=== PATIENT | female | born 1985 | race Caucasian/White ===

== ENCOUNTER 2017-02-12 14:32 | Emergency (ER) | payer BC ==
[2017-02-12 17:24] LABS: Hematocrit 38 % (35-47); Hemoglobin 13.2 g/dl (12.0-16.0); Mean Corpuscular HGB Conc 34 g/dl (31-36); Mean Corpuscular Hemoglobin 30 pg (27-31); Mean Corpuscular Volume 89 fL (80-97); Mean Platelet Volume 7 um3 (7.4-10.4); Red Blood Count 4.34 10^6/ul (4.0-5.4); Red Cell Distribution Width 13 % (10.5-15); White Blood Count 7.9 10^3/ul (3.5-10.8)
[2017-02-12 17:26] LABS: Urine Bilirubin Negative (Negative); Urine Glucose Negative (Negative); Urine Nitrite Negative (Negative)
--- NOTE | 2017-02-12 17:30 | RAD ---
INDICATION: Limited for viability COMPARISON: None TECHNIQUE: A limited evaluation performed as requested. Anatomic survey was not requested or performed due to the age of the gestation. FINDINGS: There is a single intrauterine gestation in variable presentation with heart rate of 147 beats for minute. The placenta is anterior in location. The cervix is closed measuring 4.8 cm The SMA gestational age based on biparietal diameter, head circumference, abdominal circumference, and femur length corresponds to 16 weeks 0 days, 15 weeks 4 days, 15 weeks 2 days, and 15 weeks 3 days resulting a composite value of 15 weeks 4 days. Both ovaries are visualized and appear normal. IMPRESSION: EARLY INTRAUTERINE GESTATION AT 15 WEEKS 4 DAYS WITH CONFIRMATION OF CARDIAC ACTIVITY. AN ANATOMIC SURVEY CAN BE PERFORMED AT 18-20 WEEKS
[2017-02-12 17:40] LABS: C Reactive Protein 1.3 mg/L (< 5.00); Calcium 8.8 mg/dL (8.6-10.3); EGFR African American 198.8 (>60); EGFR Non-African American 154.6 (>60); Magnesium 2.2 mg/dL (1.9-2.7); Potassium 3.9 mmol/L (3.5-5.0); Total Bilirubin 0.4 mg/dL (0.2-1.0)
[2017-02-12 18:19] LABS: TSH (Thyroid Stimulating Horm) 1.4 mcIU/mL (0.34-5.60)
--- NOTE | 2017-02-12 19:34 | ED ---
Giulia Cantu Alfonso, scribed for Alberto Robbins MD on 02/12/17 at 1631 . Palpitations / Dysrhythmia - HPI Summary HPI Summary: This patient is a 31 year old F presenting to [facility] with a chief complaint of racing palpitations from 1230 to 1600 today. She states it felt like my heart was going to beat out of my chest. The patient rates the pain 3/10 in severity. Symptoms aggravated by nothing. Symptoms alleviated by spontaneous resolution. Patient reports migraine (last three days and not present), high blood pressure, diaphoresis, dizziness, and bilateral flank pain (intermittent and sharp).Patient denies near syncope, vaginal bleeding, urinary symptoms, calf swelling, and bowel symptoms. A0. She is 15 weeks with a due date of August [address] Michael is her OBGYN. - History of Current Complaint Chief Complaint: EDDysrhythmPalp Time Seen by Provider: 02/12/17 15:47 Hx Obtained From: Patient Onset/Duration: Sudden Onset, Lasting Hours - [id number], Resolved Timing: Constant Severity Currently: Mild - 3/10 pain Character: Fast, Pounding Aggravating: Nothing Alleviating: Other - spontaneous resolution Associated Signs & Symptoms: Dizzy, Diaphoresis - Allergy/Home Medications Allergies/Adverse Reactions: Allergies Allergy/AdvReac Type Severity Reaction Status Date / Time Amoxicillin Allergy Severe Anaphylatic Verified 08/31/15 13:23 Shock Eggs or Egg-derived Products Allergy Severe THROAT Verified 08/31/15 13:23 SWELLS Shellfish Allergy Allergy Severe Anaphylatic Verified 08/31/15 13:23 Shock Cefuroxime [From Ceftin] Allergy Intermediate LIPS SWELL Verified 08/31/15 13:23 Environmental/Seasonal Allergy sneezing, Uncoded 08/31/15 13:23 Hayfever runny nose, watery eyes PMH/Surg Hx/FS Hx/Imm Hx Endocrine/Hematology History: Denies: Hx Diabetes, Hx Thyroid Disease Cardiovascular History: Reports: Hx Coronary Artery Disease - CHOLESTEROL CONTROL WITH MEDS Denies: Hx Hypertension Respiratory History: Reports: Hx Asthma Denies: Hx Chronic Obstructive Pulmonary Disease (COPD) GI History: Denies: Hx Ulcer Sensory History: Reports: Hx Contacts or Glasses - GLASSES Denies: Hx Hearing Aid Opthamlomology History: Reports: Hx Contacts or Glasses - GLASSES Denies: Hx Legally Blind EENT History: Denies: Hx Deafness - Surgical History Surgery Procedure, Year, and Place: Gastric bypass- 07/2013 Infectious Disease History: No Infectious Disease History: Denies: Hx Clostridium Difficile, Hx Hepatitis, Hx Human Immunodeficiency Virus (HIV), Hx of Known/Suspected MRSA, Hx Shingles, Hx Tuberculosis, Traveled Outside the [place] in Last 30 Days - Family History Known Family History: Positive: Hypertension, Diabetes - grandparents, Other - Cancer mother side. Negative: Cardiac Disease - Social History Alcohol Use: None Substance Use Type: Reports: None Smoking Status (MU): Never Smoked Tobacco Review of Systems Positive: Skin Diaphoresis Positive: Palpitations, Other - high blood pressure Positive: Other - bilateral flank pain (intermittent and sharp); negative bowel symptoms Positive: no symptoms reported, other - Negative vaginal bleeding Negative: Edema Neurological: Other - Dizziness Positive: Headache - Migraine. Negative: Syncope - near All Other Systems Reviewed And Are Negative: Yes Physical Exam - Summary Physical Exam Summary: General: well-appearing, no pain distress Skin: warm, color reflects adequate perfusion, dry Head: normal Eyes: EOMI, FADY ENT: normal Neck: supple, nontender Respiratory: CTA, breath sounds present Cardiovascular: RRR Abdomen: soft, nontender Bowel: present Musculoskeletal: normal, strength/ROM intact Neurological: normal, sensory/motor intact, A&O x3 Psychological: affect/mood appropriate Triage Information Reviewed: Yes Vital Signs On Initial Exam: Initial Vitals Temp Pulse Resp BP Pulse Ox 99.9 F 102 20 147/96 100 02/12/17 14:35 02/12/17 14:35 02/12/17 14:35 02/12/17 14:35 02/12/17 14:35 Vital Signs Reviewed: Yes - Madisyn Coma Scale Coma Scale Total: 15 Diagnostics - Vital Signs Vital Signs Temp Pulse Resp BP Pulse Ox 02/12/17 16:08 98.5 F 02/12/17 16:04 9 120/84 02/12/17 14:35 99.9 F 102 20 147/96 100 - Laboratory Lab Results: Lab Results 02/12/17 02/12/17 02/12/17 Range/Units 17:05 17:12 17:12 WBC (3.5-10.8) 10^3/ul RBC (4.0-5.4) 10^6/ul Hgb (12.0-16.0) g/dl Hct (35-47) % MCV (80-97) fL MCH (27-31) pg MCHC (31-36) g/dl RDW (10.5-15) % Plt Count (150-450) 10^3/ul MPV (7.4-10.4) um3 Neut % (Auto) (38-83) % Lymph % (Auto) (25-47) % [place] % (Auto) (1-9) % Eos % (Auto) (0-6) % Baso % (Auto) (0-2) % Absolute Neuts (auto) (1.5-7.7) 10^3/ul Absolute Lymphs (auto) (1.0-4.8) 10^3/ul Absolute Monos (auto) (0-0.8) 10^3/ul Absolute Eos (auto) (0-0.6) 10^3/ul Absolute Basos (auto) (0-0.2) 10^3/ul Absolute Nucleated RBC 10^3/ul Nucleated RBC % INR (Anticoag Therapy) 0.99 (0.89-1.11) APTT 29.1 (26.0-36.3) seconds D-Dimer, Quantitative < 200 (Less Than 230) ng/mL Sodium 135 (133-145) mmol/L Potassium 3.9 (3.5-5.0) mmol/L Chloride 105 (101-111) mmol/L Carbon Dioxide 22 (22-32) mmol/L Anion Gap 8 (2-11) mmol/L BUN 8 (6-24) mg/dL Creatinine 0.47 L (0.51-0.95) mg/dL Est GFR ( Amer) 198.8 (>60) Est GFR (Non-Af Amer) 154.6 (>60) BUN/Creatinine Ratio 17.0 (8-20) Glucose 79 (70-100) mg/dL Lactic Acid (0.5-2.0) mmol/L Calcium 8.8 (8.6-10.3) mg/dL Magnesium 2.2 (1.9-2.7) mg/dL Total Bilirubin 0.40 (0.2-1.0) mg/dL AST 11 L (13-39) U/L ALT 8 (7-52) U/L Alkaline Phosphatase 48 (34-104) U/L Total Creatine Kinase 28 (10-223) U/L CK-MB (CK-2) 0.6 (0.6-6.3) ng/mL Troponin I 0.00 (<0.04) ng/mL C-Reactive Protein 1.30 (< 5.00) mg/L Total Protein 7.0 (6.4-8.9) g/dL Albumin 4.0 (3.2-5.2) g/dL Globulin 3.0 (2-4) g/dL Albumin/Globulin Ratio 1.3 (1-3) Lipase 22 (11.0-82.0) U/L TSH 1.40 (0.34-5.60) mcIU/mL Urine Color Yellow Urine Appearance Clear Urine pH 6.0 (5-9) Ur Specific [place] 1.023 (1.010-1.030) Urine Protein Negative (Negative) Urine Ketones 1+ H (Negative) Urine Blood Negative (Negative) Urine Nitrate Negative (Negative) Urine Bilirubin Negative (Negative) Urine Urobilinogen Negative (Negative) Ur Leukocyte Esterase Negative (Negative) Urine Glucose Negative (Negative) 02/12/17 02/12/17 Range/Units 17:12 17:12 WBC 7.9 (3.5-10.8) 10^3/ul RBC 4.34 (4.0-5.4) 10^6/ul Hgb 13.2 (12.0-16.0) g/dl Hct 38 (35-47) % MCV 89 (80-97) fL MCH 30 (27-31) pg MCHC 34 (31-36) g/dl RDW 13 (10.5-15) % Plt Count 316 (150-450) 10^3/ul MPV 7 L (7.4-10.4) um3 Neut % (Auto) 73.2 (38-83) % Lymph % (Auto) 18.9 L (25-47) % [place] % (Auto) 5.8 (1-9) % Eos % (Auto) 1.1 (0-6) % Baso % (Auto) 1.0 (0-2) % Absolute Neuts (auto) 5.8 (1.5-7.7) 10^3/ul Absolute Lymphs (auto) 1.5 (1.0-4.8) 10^3/ul Absolute Monos (auto) 0.5 (0-0.8) 10^3/ul Absolute Eos (auto) 0.1 (0-0.6) 10^3/ul Absolute Basos (auto) 0.1 (0-0.2) 10^3/ul Absolute Nucleated RBC 0 10^3/ul Nucleated RBC % 0.1 INR (Anticoag Therapy) (0.89-1.11) APTT (26.0-36.3) seconds D-Dimer, Quantitative (Less Than 230) ng/mL Sodium (133-145) mmol/L Potassium (3.5-5.0) mmol/L Chloride (101-111) mmol/L Carbon Dioxide (22-32) mmol/L Anion Gap (2-11) mmol/L BUN (6-24) mg/dL Creatinine (0.51-0.95) mg/dL Est GFR ( Amer) (>60) Est GFR (Non-Af Amer) (>60) BUN/Creatinine Ratio (8-20) Glucose (70-100) mg/dL Lactic Acid 0.6 (0.5-2.0) mmol/L Calcium (8.6-10.3) mg/dL Magnesium (1.9-2.7) mg/dL Total Bilirubin (0.2-1.0) mg/dL AST (13-39) U/L ALT (7-52) U/L Alkaline Phosphatase (34-104) U/L Total Creatine Kinase (10-223) U/L CK-MB (CK-2) (0.6-6.3) ng/mL Troponin I (<0.04) ng/mL C-Reactive Protein (< 5.00) mg/L Total Protein (6.4-8.9) g/dL Albumin (3.2-5.2) g/dL Globulin (2-4) g/dL Albumin/Globulin Ratio (1-3) Lipase (11.0-82.0) U/L TSH (0.34-5.60) mcIU/mL Urine Color Urine Appearance Urine pH (5-9) Ur Specific [place] (1.010-1.030) Urine Protein (Negative) Urine Ketones (Negative) Urine Blood (Negative) Urine Nitrate (Negative) Urine Bilirubin (Negative) Urine Urobilinogen (Negative) Ur Leukocyte Esterase (Negative) Urine Glucose (Negative) Result Diagrams: 02/12/17 17:12 02/12/17 17:12 Lab Statement: Any lab studies that have been ordered have been reviewed, and results considered in the medical decision making process. - EKG 1638 Cardiac Rate: NL - BPM 78 EKG Rhythm: Sinus Rhythm EKG Interpretation: LVH by voltage. Flipped T-waves in III. No ectopy. - Additional Comments Diagnostic Additional Comments: US reveals, per radiologist, EARLY INTRAUTERINE GESTATION AT 15 WEEKS 4 DAYS WITH CONFIRMATION OF CARDIAC ACTIVITY. AN ANATOMIC SURVEY CAN BE PERFORMED AT 18-20 WEEKS. ED physician has reviewed this radiology report and agrees. Course/Dx - Course Course Of Treatment: INITIALLY DISCUSSED WITH SANGEETA ANDERSON. PATIENT ASYMPTOMATIC IN ED. AT DISCHARGE, NOT TACHYCARDIC OR HYPERTENSIVE. DISCUSSED RESULTS WITH PATIENT. SHE WILL F/U WITH HER PMD FOR THE EPISODES OF HYPERTENSION AND TACHYCARDIA. F/U WITH OB FOR ABD PAIN. RETURN IF WORSE. - Diagnoses Provider Diagnoses: Tachycardia, Hypertension, Abdominal pain during Discharge - Discharge Plan Condition: Stable Disposition: HOME Patient Education Materials: Hypertension (ED), Tachycardia (ED), Abdominal Pain in (ED) Referrals: Trini Sheets MD [Primary Care Provider] - Additional Instructions: FOLLOW UP WITH YOUR PRIMARY CARE DOCTOR FOR YOUR EPISODES OF HIGH BLOOD PRESSURE AND FAST HEART RATE. FOLLOW UP WITH SANGEETA ANDERSON, FOR YOUR ABDOMINAL PAIN IN . RETURN TO THE EMERGENCY DEPARTMENT FOR ANY WORSENING OF YOUR CONDITION; PAIN, HYPERTENSION, FAST HEART RATE, SHORTNESS OF BREATH OR QUESTIONS OR CONCERNS. The documentation as recorded by the Giulia gudino Alfonso accurately reflects the service I personally performed and the decisions made by me, Alberto Robbins MD.
[2017-02-12 19:35] VITALS: BP 116/91
== END 2017-02-12 19:44 | disposition home or self-care (01) ==
LOC: ED 14:32
DX: O26.892 Other specified pregnancy related conditions, second trimester (principal); Z3A.15 15 weeks gestation of pregnancy; R00.0 Tachycardia, unspecified; I10 Essential (primary) hypertension; R42 Dizziness and giddiness; R00.2 Palpitations; R10.84 Generalized abdominal pain
CPT/HCPCS: 36415; 76815; 80053; 81003; 82550; 82553; 83605; 83690; 83735; 84443; 84484; 85025; 85379; 85610; 85730; 86140; 93005; 99283

== ENCOUNTER 2017-06-13 10:40 | Inpatient (IN) | payer BC ==
[2017-06-13 11:25] LABS: ABS Basophils 0 10^3/ul (0-0.2); ABS Eosinophils 0.1 10^3/ul (0-0.6); ABS Lymphocytes 1.2 10^3/ul (1.0-4.8); ABS Monocytes 0.6 10^3/ul (0-0.8); ABS Neutrophils 5.5 10^3/ul (1.5-7.7); ABS Nucleated RBC 0 10^3/ul; Eosinophil % 1.3 % (0-6); Hematocrit 30 % (35-47); Lymphocyte % 16.2 % (25-47); Mean Corpuscular HGB Conc 34 g/dl (31-36); Mean Corpuscular Hemoglobin 28 pg (27-31); Mean Corpuscular Volume 84 fL (80-97); Mean Platelet Volume 9 um3 (7.4-10.4); Nucleated Red Blood Cells % 0; Platelet Count 182 10^3/ul (150-450); Red Blood Count 3.55 10^6/ul (4.0-5.4); Red Cell Distribution Width 13 % (10.5-15); White Blood Count 7.4 10^3/ul (3.5-10.8)
[2017-06-13 11:40] LABS: EGFR Non-African American 130.8 (>60)
[2017-06-13 12:32] LABS: Urine Appearance Cloudy; Urine Blood 1+ (Negative); Urine Color Yellow; Urine Ketones Negative (Negative); Urine Protein 3+(>=500 mg/dL) (Negative); Urine Urobilinogen Negative (Negative)
[2017-06-13] MEDS ORDERED: Labetalol TAB* 200 MG ONE (13:21)
--- NOTE | 2017-06-13 18:08 | RAD ---
INDICATION: Assess well-being COMPARISON: sonogram February 12, 2017 TECHNIQUE: Limited evaluation performed with biophysical profile FINDINGS: There is a single intrauterine gestation cephalic presentation with an anterior placenta which appears clear of the os. There is cardiac activity of 142 beats for minute. The cervix closed measuring 3.60 m. The amniotic fluid index is normal measuring 14.3. The biparietal diameter, head circumference, abdominal circumference, and femur length corresponds to 31 weeks 6 days, 33 weeks 2 days, 31 weeks 1 day, and 32 weeks 6 days resulting a composite ultrasound gestational age of 32 weeks 2 days. The radiology biophysical profile scores an 8 with 2 points each for breathing movements, movement, tone, and amniotic fluid volume. IMPRESSION: INTRAUTERINE GESTATION AT 32 WEEKS 2 DAYS. THE RADIOLOGY BIOPHYSICAL PROFILE SCORES AN 8
[2017-06-13] MEDS ORDERED: Acetaminophen TAB* 325 MG PO PRN (19:20)
[2017-06-13] MEDS ORDERED: Labetalol TAB* 200 MG PO SCH (21:00)
[2017-06-13] MEDS ORDERED: Labetalol IV* 5 MG/ML 20 ML VIAL ONE (23:18)
[2017-06-13] MEDS ORDERED: Betamethasone INJ* 6 MG/ML 5 ML VIAL (30 MG) IM ONE (23:25)
[2017-06-13] MEDS ORDERED: Labetalol IV* 5 MG/ML 20 ML VIAL IV PUSH ONE (23:26)
[2017-06-13] MEDS ORDERED: Magnesium Sulf 4 GM/100 ML IV* 4,000 MG/100 ML BAG IVPB ONE (23:27)
[2017-06-13] MEDS ORDERED: Magnesium Sulfate OB PREMIX* 40 GM/1,000 ML BAG IVPB SCH (23:45)
--- NOTE | 2017-06-13 23:52 | HP ---
General Information - General Information Maternal Age: 32 Grav: 1 Para: 0 SAB: 0 IEA: 0 Estimated Due Date: 08/06/17 Determined By: Early Ultrasound Gestational Age in Weeks and Days: 32 Weeks and 2 Days Maternal Blood Type and Rh: O Positive - Results this Serology/RPR Result: Non-Reactive Rubella Result: Immune HBsAg Result: Negative HIV Result: Negative Past Medical History Pertinent Past Medical History: See Records Past Medical History Comment: type 2 diabetes and hypertension - Antepartal Records Antepartal Records: Reviewed, Uncomplicated Exam Allergies/Adverse Reactions: Allergies amoxicillin Allergy (Verified 06/13/17 21:24) Anaphylatic Shock cefuroxime Allergy (Verified 06/13/17 21:24) Swelling Of Face,Lips,& Throat egg Allergy (Verified 06/13/17 21:24) Swelling Of Face,Lips,& Throat shellfish derived Allergy (Verified 06/13/17 21:24) Anaphylatic Shock Lab Values - Entire Visit: Laboratory Tests 06/13/17 06/13/17 06/13/17 11:12 11:12 11:45 WBC 7.4 RBC 3.55 L Hgb 10.0 L Hct 30 L MCV 84 MCH 28 MCHC 34 RDW 13 Plt Count 182 MPV 9 Neut % (Auto) 74.4 Lymph % (Auto) 16.2 L [place] % (Auto) 7.5 H Eos % (Auto) 1.3 Baso % (Auto) 0.6 Absolute Neuts (auto) 5.5 Absolute Lymphs (auto) 1.2 Absolute Monos (auto) 0.6 Absolute Eos (auto) 0.1 Absolute Basos (auto) 0 Absolute Nucleated RBC 0 Nucleated RBC % 0 Sodium 136 Potassium 4.3 Chloride 109 Carbon Dioxide 20 L Anion Gap 7 BUN 16 Creatinine 0.54 Est GFR ( Amer) 168.3 Est GFR (Non-Af Amer) 130.8 BUN/Creatinine Ratio 29.6 H Glucose 79 Uric Acid 4.9 Calcium 8.2 L Total Bilirubin 0.30 AST 17 ALT 10 Alkaline Phosphatase 103 Total Protein 5.3 L Albumin 2.8 L Globulin 2.5 Albumin/Globulin Ratio 1.1 Urine Color Yellow Urine Appearance Cloudy Urine pH 5.0 Ur Specific [place] 1.010 Urine Protein 3+(>=500 mg/dl) H Urine Ketones Negative Urine Blood 1+ H Urine Nitrate Negative Urine Bilirubin Negative Urine Urobilinogen Negative Ur Leukocyte Esterase Trace H Urine WBC (Auto) Trace(0-5/hpf) Urine RBC (Auto) Trace(0-2/hpf) Ur Squamous Epith Cells Present H Urine Bacteria 1+ H Urine Glucose Negative - Measurements Height: 5 ft Weight: 183 lb Weight in lbs: 183 Body Mass Index (BMI): 35.7 Pre- Weight: 142 lb Weight Gained This : 41 lbs and 0 ozs - Exam Abdomen: No Upper Quadrant Pain Breast: Breast Exam Deferred Heart: Normal Rhythm/Heart Sounds Lungs: Clear Bilaterally Reflexes: DTR 2+, - - 3 + EFM Findings - External Monitor Findings Baseline Heart Rate: 130 External Monitor Findings: Variability Moderate Contractions: None Assessment/Plan - Reason for Visit Reason for Visit: preeeclampsia with severe features bp >160 on 2 separate occasions - Plan Plan: Mag Sulfate Plan Comment: will keep bp controlled and start magnesium sulfate for seizure prophylaxis start betamethasone recheck labs in am . if bp becomes difficcult to control may need to expedite delivery prior to 48 hrs otherwise would plan for delivery at 48 hrs
[2017-06-14] MEDS: Acetaminophen TAB* 325 MG PO PRN ×2 (04:24→10:01)
--- NOTE | 2017-06-14 05:52 | HP ---
ADMISSION FOR OBSERVATION HISTORY AND PHYSICAL: DATE OF ADMISSION: 06/13/17 HISTORY OF PRESENT ILLNESS: Ms. Trotter is a 32-year-old lady who is currently @ 32 weeks estimated gestational age. She presented to the office today for care visit, where she had complaints of headaches for several days and had elevated blood pressure at the office of 140/100. She was sent to Labor and Delivery for evaluation of hypertension and to rule out preeclampsia. Patient's past medical history is significant for history of obesity, hypertension, and diabetes, and after she had a gastric bypass in 2013 , her blood pressure and her diabetes were normalized. The patient's care has been unremarkable up to this date. Her labs have been normal and she had a diabetes screening during this which was within normal limits as well. PAST MEDICAL HISTORY: The patient's past medical history is as noted in the history of present illness; hypertension, diabetes, obesity, and gastric bypass in 2013, asthma, and cervical fibroid. PAST SURGICAL HISTORY: Gastric bypass in 2013. OBSTETRICAL HISTORY: This is her first . GYNECOLOGIC HISTORY: Noncontributory. FAMILY HISTORY: Significant for myasthenia gravis, esophageal cancer, breast cancer, hypertension, high cholesterol, diabetes, and idiopathic thrombocytopenia. SOCIAL HISTORY: The patient denies cigarette, alcohol, or drug use. She currently works as a nurse. REVIEW OF SYSTEMS: The patient denies changes of vision. She received Tylenol in Labor and Delivery and denies headache. She denies any constitutional signs or symptoms. No nausea, no vomiting, no diarrhea. No abdominal pain. No urinary signs or symptoms. PHYSICAL EXAMINATION GENERAL: When she presented to Labor and Delivery she complained of a headache. VITAL SIGNS: She is 5 feet 0 inches tall, weight 183 pounds, her temperature was 36.8 pulse is 64, respiratory rate of 18, her blood pressure on presentation to Labor and Delivery was 182/103 with a pulse ox of 100% on room air. LUNGS: Clear to auscultation bilaterally. HEART: Shows regular rate and rhythm. ABDOMEN: Soft, nontender gravid with palpable movement. A pelvic exam was deferred. EXTREMITIES: Reflexes were +2 in bilateral lower extremities. LABORATORY DATA: She had a biophysical profile and ultrasound at the hospital ; biophysical profile was 8/8. She had a nonstress test which was reactive and biometry is consistent with her date. The patient also had a complete blood cell count and comprehensive metabolic panel. The complete blood cell count is consistent with iron deficiency anemia, with a hemoglobin and hematocrit of 10/30, normal white blood cell count and normal platelet. Her comprehensive metabolic panel is within normal limits. Urinalysis shows +3 protein and 1+ blood and a 24- hour urine collection is pending. IMPRESSION AND PLAN: at 32 weeks, primigravida, with a history of hypertension in the past and diabetes and a prior gastric bypass. The patient is being treated with labetalol 200 mg p.o. twice a day. She is also undergoing a 24 hour urine collection. We are going to observe her as an inpatient and monitor her blood pressures and a final decision would be made after her 24-hour urine collection is final. [id number]/[facility]PS #: [id number] MTDD
[2017-06-14 06:54] LABS: ABS Basophils 0 10^3/ul (0-0.2); ABS Eosinophils 0 10^3/ul (0-0.6); ABS Lymphocytes 0.5 10^3/ul (1.0-4.8); ABS Monocytes 0.1 10^3/ul (0-0.8); ABS Neutrophils 5.3 10^3/ul (1.5-7.7); ABS Nucleated RBC 0 10^3/ul; Eosinophil % 0.1 % (0-6); Hematocrit 30 % (35-47); Hemoglobin 10.3 g/dl (12.0-16.0); Lymphocyte % 8.9 % (25-47); Mean Corpuscular HGB Conc 34 g/dl (31-36); Mean Corpuscular Hemoglobin 29 pg (27-31); Mean Corpuscular Volume 84 fL (80-97); Mean Platelet Volume 9 um3 (7.4-10.4); Nucleated Red Blood Cells % 0; Platelet Count 167 10^3/ul (150-450); Red Cell Distribution Width 13 % (10.5-15); White Blood Count 5.9 10^3/ul (3.5-10.8)
[2017-06-14 07:04] LABS: INR 0.86 (0.77-1.02)
[2017-06-14 07:54] LABS: EGFR Non-African American 111.6 (>60)
[2017-06-14] MEDS: Labetalol TAB* 200 MG PO SCH ×2 (14:12→21:07)
[2017-06-14] MEDS ORDERED: Clindamycin 900 MG IVPREMIX(* 900 MG/50 ML SDV IV ONE ×2 (15:13→15:29)
[2017-06-14] MEDS ORDERED: Sodium Citrate/Citric Acid* 15 ML UDC PO ONE (15:14)
[2017-06-14] MEDS ORDERED: OXYTOCIN* 10 UNITS/ML 1 ML VIAL ONE (15:29)
[2017-06-14] MEDS ORDERED: Phenylephrine IV* 40 MCG/ML 10 ML SYRINGE ONE (15:29)
[2017-06-14] MEDS ORDERED: Morphine PF AMP (0.5MG/ML)* 5 MG/10 ML AMP ONE (15:29)
[2017-06-14] MEDS ORDERED: Sodium Citrate/Citric Acid* 15 ML UDC ONE (15:30)
[2017-06-14] MEDS ORDERED: fentaNYL* 50 MCG/ML 2 ML VIAL (100 MCG VIAL) IV PRN (15:34)
[2017-06-14] MEDS ORDERED: Ondansetron INJ* 2 MG/ML VIAL IV PRN ×2 (15:34→16:41)
[2017-06-14] MEDS ORDERED: Naloxone* 0.4 MG/ML 1 ML VIAL IV PRN ×2 (15:34→16:41)
[2017-06-14] MEDS ORDERED: Gentamicin ADULT (*) 150 MG in NS 0.9% 100 ML* 100 ML IVPB ONE (16:00)
[2017-06-14] MEDS ORDERED: Ondansetron INJ* 2 MG/ML VIAL ONE (16:26)
[2017-06-14] MEDS ORDERED: oxyCODONE/Acetamin 5/325 MG* TAB PO PRN ×3 (16:41→17:22)
[2017-06-14] MEDS ORDERED: Nalbuphine* 20 MG/ML 1 ML VIAL IV PRN (16:41)
[2017-06-14] MEDS ORDERED: fentaNYL* 50 MCG/ML 2 ML VIAL (100 MCG VIAL) ONE (16:50)
[2017-06-14] MEDS ORDERED: Ketorolac INJ* 30 MG/ML 1 ML VIAL ONE (17:05)
[2017-06-14] MEDS ORDERED: Zolpidem TAB* 5 MG PO PRN (17:22)
[2017-06-14] MEDS ORDERED: Witch Hazel PAD* JAR TOPICAL PRN (17:22)
[2017-06-14] MEDS ORDERED: Dibucaine 1% 28.35 GM TUBE PR PRN (17:22)
[2017-06-14] MEDS ORDERED: Glycerin ADULT SUPP PR PRN (17:22)
[2017-06-14] MEDS ORDERED: Tetan/Diph/Pertus SYR(Tdap)* 0.5 ML SYR(BOOSTRIX) use SYR IM ONE (17:22)
[2017-06-14] MEDS ORDERED: Ibuprofen TAB* 600 MG PO PRN (17:22)
[2017-06-14] MEDS ORDERED: Acetaminophen TAB* 325 MG PO PRN (17:22)
[2017-06-14] MEDS ORDERED: Magnesium Sulfate OB PREMIX* 40 GM/1,000 ML BAG IVPB SCH (17:30)
[2017-06-14] MEDS ORDERED: Magnesium Sulfate OB PREMIX* 40 GM/1,000 ML BAG ONE (17:38)
[2017-06-14] MEDS ORDERED: Oxytocin in LR* 20 UNITS/1,000 ML BAG IVPB ONE (18:33)
[2017-06-14] MEDS: Simethicone TAB* 80 MG TAB.CHEW PO SCH ×2 (21:07→23:57)
[2017-06-14] MEDS: Docusate CAP* 100 MG PO SCH (21:07)
[2017-06-14] MEDS: oxyCODONE/Acetamin 5/325 MG* TAB PO PRN (21:36)
[2017-06-15] MEDS: Ketorolac INJ* 30 MG/ML 1 ML VIAL IV PRN ×2 (00:30→07:44)
[2017-06-15] MEDS: oxyCODONE/Acetamin 5/325 MG* TAB PO PRN (04:05)
[2017-06-15 06:32] LABS: ABS Basophils 0 10^3/ul (0-0.2); ABS Eosinophils 0 10^3/ul (0-0.6); ABS Lymphocytes 0.7 10^3/ul (1.0-4.8); ABS Monocytes 0.5 10^3/ul (0-0.8); ABS Neutrophils 6.4 10^3/ul (1.5-7.7); ABS Nucleated RBC 0 10^3/ul; Eosinophil % 0 % (0-6); Hematocrit 26 % (35-47); Lymphocyte % 9.4 % (25-47); Mean Corpuscular HGB Conc 35 g/dl (31-36); Mean Corpuscular Hemoglobin 29 pg (27-31); Mean Corpuscular Volume 84 fL (80-97); Mean Platelet Volume 9 um3 (7.4-10.4); Nucleated Red Blood Cells % 0; Platelet Count 154 10^3/ul (150-450); Red Blood Count 3.08 10^6/ul (4.0-5.4); Red Cell Distribution Width 13 % (10.5-15); White Blood Count 7.7 10^3/ul (3.5-10.8)
[2017-06-15] MEDS: Simethicone TAB* 80 MG TAB.CHEW PO SCH ×3 (07:47→20:52)
[2017-06-15] MEDS ORDERED: oxyCODONE/Acetamin 5/325 MG* TAB PO PRN (08:11)
[2017-06-15] MEDS: Labetalol TAB* 200 MG PO SCH ×3 (09:05→20:01)
[2017-06-15] MEDS: Docusate CAP* 100 MG PO SCH ×3 (14:21→20:52)
[2017-06-15] MEDS: Ferrous Gluconate TAB* 324 MG TAB PO SCH ×2 (14:23→20:52)
[2017-06-15] MEDS: Ibuprofen TAB* 600 MG PO PRN (20:52)
[2017-06-16] MEDS: oxyCODONE/Acetamin 5/325 MG* TAB PO PRN ×4 (03:56→19:38)
[2017-06-16] MEDS: Docusate CAP* 100 MG PO SCH ×3 (08:18→21:33)
[2017-06-16] MEDS: Simethicone TAB* 80 MG TAB.CHEW PO SCH ×4 (08:18→21:35)
[2017-06-16] MEDS: Ferrous Gluconate TAB* 324 MG TAB PO SCH ×2 (08:18→21:34)
[2017-06-16] MEDS: Labetalol TAB* 200 MG PO SCH ×3 (08:18→21:34)
[2017-06-16] MEDS: Ibuprofen TAB* 600 MG PO PRN ×2 (10:14→21:36)
[2017-06-16] MEDS: Acetaminophen TAB* 325 MG PO PRN (16:39)
[2017-06-17] MEDS: Labetalol TAB* 200 MG PO SCH ×3 (05:42→21:12)
[2017-06-17] MEDS: Ibuprofen TAB* 600 MG PO PRN ×2 (05:44→14:28)
[2017-06-17] MEDS: Ferrous Gluconate TAB* 324 MG TAB PO SCH ×2 (09:56→21:12)
[2017-06-17] MEDS: Simethicone TAB* 80 MG TAB.CHEW PO SCH ×5 (09:56→21:12)
[2017-06-17] MEDS: Docusate CAP* 100 MG PO SCH ×3 (09:57→21:12)
[2017-06-17] MEDS ORDERED: NIFEdipine CAP* 10 MG PO ONE ×2 (15:24→23:30)
[2017-06-17] MEDS ORDERED: NIFEdipine CAP* 10 MG PO PRN (19:59)
[2017-06-17] MEDS ORDERED: NIFEdipine CAP* 10 MG ONE (20:05)
[2017-06-18] MEDS: Ibuprofen TAB* 600 MG PO PRN (01:25)
[2017-06-18] MEDS: Labetalol TAB* 200 MG PO SCH ×3 (05:56→22:02)
[2017-06-18] MEDS: Simethicone TAB* 80 MG TAB.CHEW PO SCH ×4 (09:03→22:29)
[2017-06-18] MEDS: Docusate CAP* 100 MG PO SCH ×3 (09:03→22:29)
[2017-06-18] MEDS: NIFEdipine ER TAB* 30 MG PO SCH (09:04)
[2017-06-18] MEDS: Ferrous Gluconate TAB* 324 MG TAB PO SCH ×2 (09:04→21:05)
[2017-06-18] MEDS ORDERED: Furosemide TAB* 20 MG PO ONE (14:13)
[2017-06-18] MEDS ORDERED: NIFEdipine CAP* 10 MG PO ONE (20:00)
[2017-06-18] MEDS: Acetaminophen TAB* 325 MG PO PRN (21:05)
--- NOTE | 2017-06-19 00:49 | OP ---
DATE OF OPERATION: 06/14/17 - ROOM #118 DATE OF : 85 SURGEON: Magan Michael MD [employer] OPERATOR: Florencia Saldana CM ANESTHESIA: Spinal. PRE-OP DIAGNOSES: Intrauterine at 32 weeks gestational age, severe preeclampsia, remote from delivery with persistent headaches. POST-OP DIAGNOSES: Intrauterine at 32 weeks gestational age, severe preeclampsia, remote from delivery with persistent headaches. OPERATIVE PROCEDURE: Primary low-transverse section. ESTIMATED BLOOD LOSS: 600 cc. SPECIMENS: Specimen sent to pathology was cord blood. FLUIDS: She received 2 L of IV crystalloid fluid. URINE OUTPUT: Clear. FINDINGS: Delivery of a female weighing 3 pounds 15 ounces with Agars of 9 and 9 over clear fluid where the placenta was grossly intact with a 3- vessel cord noted. The uterus had a posterior left lower uterine segment myoma and the adnexa were normal bilaterally and normal bowel and bladder. There were no complications during this procedure. DESCRIPTION OF PROCEDURE: The patient was taken to the operating room where she was identified. She was placed on the operating room table where a spinal anesthetic was obtained without difficulty. She was then placed in the supine position with a leftward tilt, prepped and draped in a normal sterile fashion. A Pfannenstiel skin incision was made with a knife and extended laterally with curved Hart scissors. The fascia was grasped with pickups and nicked in the midline with a knife and extended laterally with bandage scissors. The fascia was then grasped superiorly and inferiorly with Enriqueta clamps and dissected off sharply from the rectus muscle. The rectus muscle was in the midline bluntly. The peritoneum was identified, grasped with pickups, and entered sharply with Metzenbaum scissors and extended superiorly and inferiorly bluntly. The bladder blade was inserted into the patient's abdomen. A bladder flap was created using Metzenbaum scissors over which the bladder blade was then reinserted. A low transverse skin incision was made with a knife, and incision was extended laterally with bandage scissors. The 's head was then grasped and delivered atraumatically. The cord was clamped and cut. was handed off to awaiting full time staff interpreter. Cord bloods were obtained. The placenta was removed manually. The uterus was then exteriorized and cleared of all clot and debris using moist laparotomy sponges. The uterine incision was then closed using 0-Polysorb suture in a running locked fashion with a second imbricating layer of 0 Polysorb suture. There was good hemostasis at the uterine incision noted. The uterus was then returned to the patient's abdomen. The gutters were then cleared off all clot and debris using moist laparotomy sponges. All the sponges and instruments were removed from the patient's abdomen. The peritoneum was then closed using 3-0 Polysorb suture in a running fashion. The fascia was closed used 0 Polysorb suture in a running fashion. The subcutaneous Rock's layer was closed using 3-0 Polysorb suture interrupted stitches and the skin was closed with 4-0 Monocryl subcuticular stitch. The patient tolerated the procedure well. Sponge, lap, and needle counts were correct x2. She was then transferred to recovery room area in stable condition. [id number]/[facility] #: [id number] EDWIN
[2017-06-19] MEDS: Labetalol TAB* 200 MG PO SCH ×3 (05:09→21:10)
[2017-06-19] MEDS: Ferrous Gluconate TAB* 324 MG TAB PO SCH ×2 (07:53→21:10)
[2017-06-19] MEDS: NIFEdipine ER TAB* 30 MG PO SCH (07:54)
[2017-06-19] MEDS: Docusate CAP* 100 MG PO SCH ×3 (11:44→21:10)
[2017-06-19] MEDS: Simethicone TAB* 80 MG TAB.CHEW PO SCH ×3 (11:44→21:11)
[2017-06-20] MEDS ORDERED: Labetalol TAB* 200 MG PO SCH (06:15)
[2017-06-20 08:02] VITALS: BP 142/94
[2017-06-20] MEDS: NIFEdipine ER TAB* 30 MG PO SCH (09:29)
[2017-06-20] MEDS: Ferrous Gluconate TAB* 324 MG TAB PO SCH (09:30)
[2017-06-20] MEDS: Docusate CAP* 100 MG PO SCH (09:32)
[2017-06-20] MEDS: Simethicone TAB* 80 MG TAB.CHEW PO SCH (09:32)
== END 2017-06-20 10:30 | disposition home or self-care (01) | DRG 540 ==
LOC: MCHOBOUT 10:40 → OBSVTOIN 20:15 → MCHOB 20:15
PROVIDERS: ADMIT Obstetrics & Gynecology; ATTEND Obstetrics & Gynecology
PROC: 10D00Z1 Extraction of Products of Conception, Low, Open Approach (ICD-10-PCS; principal; 2017-06-13)
PROC: 4A1HX4Z Monitoring of Products of Conception, Cardiac Electrical Activity, External Approach (ICD-10-PCS; 2017-06-13)
DX: O14.14 Severe pre-eclampsia complicating childbirth (principal); O24.12 Pre-existing type 2 diabetes mellitus, in childbirth; O60.14X0 Preterm labor third trimester with preterm delivery third trimester, not applicable or unspecified; O99.214 Obesity complicating childbirth; E66.9 Obesity, unspecified; O99.844 Bariatric surgery status complicating childbirth; O99.02 Anemia complicating childbirth; O99.52 Diseases of the respiratory system complicating childbirth; J45.909 Unspecified asthma, uncomplicated; E11.9 Type 2 diabetes mellitus without complications; O34.13 Maternal care for benign tumor of corpus uteri, third trimester; D25.9 Leiomyoma of uterus, unspecified; Z3A.32 32 weeks gestation of pregnancy; Z37.0 Single live birth; Z68.35 Body mass index [BMI] 35.0-35.9, adult; Z88.1 Allergy status to other antibiotic agents; Z82.49 Family history of ischemic heart disease and other diseases of the circulatory system; Z88.0 Allergy status to penicillin; Z91.012 Allergy to eggs; Z91.013 Allergy to seafood
CPT/HCPCS: 36415; 76819; 80053; 81003; 81015; 84156; 84550; 85025; 85610; 85730; 87086; 88307; A9270-GY; J0702; J1580; J1885; J2405; J2590; J3010; J3475